=== PATIENT | female | born 1995 | race African-American/Black ===

== ENCOUNTER 2025-09-07 14:51 | Emergency (ER) | payer BC ==
[~2025-09-07] VITALS: Ht 149.9 cm; Wt 53.0 kg
[2025-09-07 15:06] VITALS: O2SAT 99
[2025-09-07] MEDS: ACETAMINOPHEN 500MG TABLET PO ONE (16:38)
[2025-09-07] MEDS: LIDOCAINE HCL 1% 20ML VIAL INFIL ONE (16:39)
[2025-09-07] MEDS ORDERED: CEPH500C2 MT (16:56)
[2025-09-07] MEDS ORDERED: BO1 TP (16:56)
[2025-09-07 17:11] VITALS: BP 111/57; PULSE 70; RESP 16; TEMP 37.2; O2SAT 100
== END 2025-09-07 17:10 | disposition home or self-care (01) ==
LOC: ER 14:51
DX: L02.412 Cutaneous abscess of left axilla (principal); Z90.49 Acquired absence of other specified parts of digestive tract
CPT/HCPCS: 10060; 10061; 99283; 99284